=== PATIENT | male | born 2000 | race Caucasian/White ===

== ENCOUNTER 2022-12-21 11:26 | Emergency (ER) | payer MEDICAID ==
[~2022-12-21] VITALS: Ht 167.6 cm; Wt 70.3 kg
[2022-12-21 12:33] VITALS: BP_SYST 145; PULSE 83; RESP 18; TEMP 98.5; O2SAT 99
[2022-12-21] MEDS ORDERED: NABU-140 PO (13:29)
== END 2022-12-21 14:30 | disposition home or self-care (01) ==
LOC: SED 11:26
DX: S93.601A Unspecified sprain of right foot, initial encounter (principal); Z79.899 Other long term (current) drug therapy; V86.56XA Driver of dirt bike or motor/cross bike injured in nontraffic accident, initial encounter; Y93.89 Activity, other specified; Y92.89 Other specified places as the place of occurrence of the external cause; Y99.8 Other external cause status
CPT/HCPCS: 99283